=== PATIENT | male | born 1965 | race Caucasian/White ===

== ENCOUNTER 2025-08-08 07:02 | Outpatient (CLI) | payer OTHER, SELFPAY ==
--- NOTE | ~2025-08-08 | PE_ITS ---
EXAMINATION: PET_PETPSMAST_PT DATE: 08/08/2025 11:11 INDICATION: Malignant neoplasm of prostate. TECHNIQUE: 5.413 mCi of Ga-68 gozetotide was administered intravenously. Low dose computed tomography (CT) images were acquired from the base of the brain to the proximal thighs for attenuation correction and anatomic localization. Automated exposure control was employed. Dose-length product (DLP) was 1059 mGy- cm. Positron emission tomography (PET) images were acquired in the same distribution. COMPARISON: None FINDINGS: Head/neck: There are no pathologically enlarged lymph nodes. There is a 13 mm nodule in right thyroid lobe, likely not clinically significant. Chest: There is mild emphysema. No pleural effusion. The heart size is normal. There are coronary artery calcifications. There are calcifications of the aortic valve. No pericardial effusion. There is mild bilateral gynecomastia. Abdomen/pelvis/proximal thighs: The liver, gallbladder, spleen, pancreas, adrenal glands, and right kidney are normal. There is a 3 mm stone in left kidney. There is a 1.6 cm cyst in left kidney. The prostate is mildly enlarged with maximum SUV of 5.2 on the right. There is diverticulosis of the colon without evidence of diverticulitis. There are no dilated loops of bowel. The appendix is normal. There are no pathologically enlarged lymph nodes. There is no free intraperitoneal fluid. There is no osseous malignancy. IMPRESSION: 1. Mildly enlarged prostate with maximum SUV of 5.2 on the right, consistent with primary malignancy. No evidence of metastatic disease. Reviewed, dictated and finalized at location E. HEATER INSTALLER IMPRESSION: 1. Mildly enlarged prostate with maximum SUV of 5.2 on the right, consistent wi th primary malignancy. No evidence of metastatic disease.
--- OUTSIDE RECORDS SUMMARY | 2025-08-08 07:04 | XMS_ITS | Clinical Summary ---
Author Organization [facility] Address [address] [place] [address] Care Team Providers Care Customer Sales Consultant Name Role Phone Brittanie Ervin MD Primary Care Provider [phone] Source Comments [facility],non-owned Affiliates and Associated Physician Practices is amultiple site organization consisting of ambulatory clinics and hospital sitesin [place], [place], [place] and [place]. This disclosure is being madepursuant to the Care Everywhere program and may not contain all information available regarding this patient. Last updated 18.[facility] Allergies No known active allergies Medications * Be aware that medications may not be up to date on this document. Alwaysverify current medications with the patient. LISINOPRIL PO Active atorvastatin (LIPITOR) 40 MG tablet Take 40 mg by mouth at bedtime Active Vitamin D, Ergocalciferol, 2000 UNITS CAPS Acti ve aspirin (ASPIRIN) 81 MG tablet Take 81 mg by mouth once daily Active METFORMIN HCL ER, MOD, PO Active fluticasone propionate (FLONASE) 50 MCG/ACT nasal sprayIndication s:Seasonal Allergic Rhinitis [place] 2 sprays into each nostril once daily Discontinue when symptoms resolve. 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 Gender Identity Not on file Sexual Orientation Not on file Last Filed Vital Signs Vital Sign Reading Time Taken Comments Blood Pressure 124/78 12/05/2019 10:48 AM CDT Pulse 115 12/05/2019 10:48 AM CDT Temperature 37.3 C (99.1 F) 12/05/2019 10:48 AM CDT Respiratory Rate 20 12/05/2019 10:48 AM CDT Oxygen Saturation 98% 12/05/2019 10:48 AM CDT Inhaled Oxygen Concentration - - Weight 105.2 kg (232 lb) 12/05/2019 10:48 AM CDT Height 168.9 cm (5' 6.5) 12/05/2019 10:48 AM CD T Body Mass Index 36.88 12/05/2019 10:48 AM CDT Plan of Treatment Health Maintenance Due Date Last Done Comments COLOGUARD (AGES 45-75) - COLON CA SCREENING 1966 COLON MONITORING 1966 COLONOSCOPY - COLON CA SCREENING 1966 CT COLONOGRAPHY - COLON CA SCREENING 1966 Colorectal Cancer Screening 1966 FIT - COLON CA SCREENING 1966 FLEX SIG - COLON CA SCREENING 1966 HIV SCREENING 1981 HEPATITIS C SCREENING 11/08/1984 DTAP/TDAP/TD VACCINES (1 - Tdap) 1985 HEPATITIS B VACCINE (1 of 3 - 19+ 3-dose series) 1985 PNEUMOCOCCAL VACCINE 50+ (1 of 2 - PCV) 1985 ZOSTER VACCINE (1 of 2) 2016 DEPRESSION SCREENING 09/29/2024 COVID-19 VACCINE (2 - 2024- season) 2025 12/22/2020 INFLUENZA VACCINE (#1) 2025 4, 07/30/2023, 07/30/2022, Additional history exists HIB VACCINE Aged Out No longer eligi ble based on patient's age to complete this topic HPV VACCINE Aged Out No longer eligi ble based on patient's age to complete this topic MENINGOCOCCAL (Group B) VACCINE SHARED DECISION-MAKING Aged Out No longer eligible based on patient's age to complete this topic MENINGOCOCCAL GROUPS A/C/Y/W VACCINE Aged Out No longer eligible based on patient's age to complete this topic Insurance [facility] Address: [address] [address] [facility] Address: [facility] [id number] [place] [id number] * Guarantor: E-SCREEN,MICHELLE Account Type Relation to Patient Date of Phone Billing Address Company Employer [employer] [address] Care Teams Customer Sales Consultant Relationship Specialty Start Date End Date Brittanie Ervin MD [address] [place] [id number] PCP - General Internal Medicine 05/12/24
== END 2025-08-08 07:03 | disposition home or self-care (01) ==
PROVIDERS: Visit Provider Urology
DX: C61 Malignant neoplasm of prostate (principal); N40.0 Benign prostatic hyperplasia without lower urinary tract symptoms
CPT/HCPCS: 78815; A9596